=== PATIENT | female | born 1985 | race Caucasian/White ===

== ENCOUNTER 2017-08-15 12:19 | Outpatient (CLI) | payer OTHER ==
[~2017-08-15 12:19] MED LIST: LEVAQUIN750 MG PO; LEVSIN/SL0.125 MG SL; PROTONIX40 MG PO; PYRIDIUM200 MG PO; ZANTAC150 M3 PO
== END 2017-08-16 08:48 | disposition home or self-care (01) ==
LOC: RAD 501 12:19
DX: M54.5 Low back pain (principal); M54.6 Pain in thoracic spine

== ENCOUNTER 2020-12-03 12:58 | Outpatient (CLI) | payer OTHER | END 2020-12-03 13:20 | disposition home or self-care (01) | LOC: MRI 12:58 | PROVIDERS: ATTEND Surgery | DX: M25.561 Pain in right knee (principal); M25.562 Pain in left knee | CPT/HCPCS: 73718 ==

== ENCOUNTER 2024-10-04 10:00 | Outpatient (CLI) | payer OTHER | END 2024-10-04 10:10 | disposition home or self-care (01) | LOC: SONOGRAMA 10:00 | PROVIDERS: ATTEND Internal Medicine | DX: E04.2 Nontoxic multinodular goiter (principal) ==